=== PATIENT | female | born 1955 | race Hispanic/Latino ===

== ENCOUNTER 2023-03-27 16:46 | Emergency (ER) | payer OTHER ==
[2023-03-27 18:32] LABS: Hematocrit 35.1 % (36.0-45.0); Lymphocytes % 8.6 % (15.3-44.8); MCV 93.9 fL (80-100); RBC Red Blood Cell Count 3.74 M/uL (3.86-4.86)
[2023-03-27 18:34] LABS: Protime INR 0.98
[2023-03-27 18:49] LABS: ALT/SGPT 28 U/L (13-56); AST/SGOT 16 U/L (15-37); Albumin 3.9 g/dL (3.4-5.0); Alkaline Phosphatase 80 U/L (45-117); BUN Blood Urea Nitrogen 17 mg/dL (7-18); Bicarbonate 25 mEq/L (21-32); Bilirubin Total 0.2 mg/dL (0.2-1.0); Glomerular Filtration Rate 94 ml/min (=/>90); Glucose Level 147 mg/dL (74-106); Lipase 38 U/L (13-75); NT PRO-BNP 61 pg/mL (<125); Potassium 3.4 mEq/L (3.5-5.1); Protein, Total 7.7 g/dL (6.4-8.2); Sodium Level 135 mEq/L (136-145); Troponin High Sensitivity 3.4 pg/mL (<58.9)
[2023-03-27 18:52] LABS: Bilirubin Direct < 0.1 mg/dL (0-0.2)
[2023-03-27] MEDS ORDERED: ONDANSETRON 4 MG/2 ML VIAL ONE (19:01)
[2023-03-27] MEDS ORDERED: FAMOTIDINE 20 MG/2 ML VIAL IV ONE (19:01)
--- NOTE | 2023-03-27 19:24 | RAD REPORT ---
EXAM DESCRIPTION: [place] Single View03/27/2023 5:59 pm CLINICAL HISTORY: CHEST PAIN COMPARISON: Chest Single View dated 08/17/2017; CHEST SINGLE VIEW dated 10/27/2010; CHEST PA AND LAT 2 VIEW dated 06/26/2007 TECHNIQUE: Portable AP view of the chest. FINDINGS: The lungs are clear. No pneumothorax or effusion. The cardiomediastinal contours are unrem arkable. IMPRESSION: No acute cardiopulmonary process.
--- NOTE | 2023-03-27 20:00 | RAD REPORT ---
EXAM DESCRIPTION: CT - Chest For Pe Angio - 03/27/2023 7:26 pm CLINICAL HISTORY: CHEST PAIN COMPARISON: Chest Single View dated 03/27/2023 TECHNIQUE: Thin axial CT images of the chest were obtained following administration of 100 mL Isovue 370 IV contrast. Multiplanar reconstructions, and maximum intensity projection reconstructions were generated and reviewed. Exam utilizes a protocol for optimal evaluation of pulmonary arterial tree. All CT scans are performed using dose optimization technique as appropriate and may include automated exposure control or mA/KV adjustment according to patient size. FINDINGS: Pulmonary arteries are normal. No emboli or other suspicious finding. No acute or signific ant aorta findings. No mass or infiltrate in the lung parenchyma. No pleural thickening or pleural effusion. No pneumotho rax. No abnormal mediastinal or hilar masses or lymphadenopathy seen. No chest wall mass or abnormal axill iary lymphadenopathy. IMPRESSION: No evidence of acute central pulmonary emboli. No acute findings in the chest.
--- NOTE | 2023-03-27 20:04 | RAD REPORT ---
EXAM DESCRIPTION: CT - Abdomen Pelvis W Contrast - 03/27/2023 7:26 pm CLINICAL HISTORY: ABD PAIN COMPARISON: Abdomen Pelvis W Contrast dated 02/17/2022; Chest Single View dated 03/27/2023 TECHNIQUE: Thin cut axial CT imaging of the abdomen and pelvis was performed following intravenous a dministration of 100 Isovue 370. Multiplanar reformats were generated and reviewed. All CT scans are performed using dose optimization technique as appropriate and may include automated exposure control or mA/KV adjustment according to patient size. FINDINGS: No suspicious findings in the lung bases. The liver, spleen, and pancreas show no suspicious findings. Gallbladder and biliary tree are also wi thout suspicious finding. Symmetric renal function is seen with no hydronephrosis or suspicious renal mass. No dilated bowel loops. Mild diffuse bowel wall thickening along the ascending and transverse colon. No free air, free fluid or inflammatory stranding. No hernia, mass or bulky lymphadenopathy. The urin lucille bladder is without significant finding. No suspicious bony findings. IMPRESSION: Mild diffuse bowel wall thickening along the ascending and transverse colon, could refle ct nonspecific infectious or inflammatory colitis, although the appearance could in part be related t o suboptimal distention. No other acute findings in the abdomen and pelvis.
--- NOTE | 2023-03-27 20:51 | ER ---
Nurse's Notes [facility] Name: Ellen Nevarez Age: 67 yrs Sex: Female : 1955 Arrival Date: 03/27/2023 Time: 16:46 Bed 3 Private MD: Diagnosis: Colitis Presentation: 03/27 17:08 Chief complaint: Patient states: she is having diffuse abdominal pain with nausea after ap3 eating pork tacos. patient reports her symptoms started today. Coronavirus screen: At this time, the client does not indicate any symptoms associated with coronavirus-19. Ebola Screen: No symptoms or risks identified at this time. Initial Sepsis Screen: Does the patient meet any 2 criteria? No. Patient's initial sepsis screen is negative. Does the patient have a suspected source of infection? No. Patient's initial sepsis screen is negative. Risk Assessment: Do you want to hurt yourself or someone else? Patient reports no desire to harm self or others. Onset of symptoms was March 27, 2023. 17:08 Method Of Arrival: Wheelchair ap3 17:08 Acuity: RAOUL 3 ap3 Triage Assessment: 17:10 General: Appears in no apparent distress. Behavior is calm, cooperative. Pain: ap3 Complains of pain in abdomen Pain began today. Neuro: Level of Consciousness is awake, alert, obeys commands, Oriented to person, place, time, situation. Cardiovascular: Patient's skin is warm and dry. Respiratory: Airway is patent Respiratory effort is even, unlabored, Respiratory pattern is regular, symmetrical. GI: Reports lower abdominal pain, upper abdominal pain, nausea. Historical: - Allergies: 17:09 Aspirin; ap3 - PMHx: 17:09 Hypertension; ap3 - Immunization history:: Client reports having NOT received the Covid vaccine. - Social history:: Smoking status: Patient denies any tobacco usage or history of. Screenin:11 Abuse screen: Denies threats or abuse. Nutritional screening: No deficits noted. ap3 Tuberculosis screening: No symptoms or risk factors identified. 19:10 [facility] ED Fall Risk Assessment (Adult) History of falling in the last 3 months, nj1 including since admission No falls in past 3 months (0 pts) Confusion or Disorientation No (0 pts) Intoxicated or Sedated No (0 pts) Impaired Gait No (0 pts) Mobility Assist Device Used No (0 pt) Altered Elimination No (0 pt) Score/Fall Risk Level 0 - 2 = Low Risk Oriented to surroundings, Maintained a safe environment, Hourly rounding (assess needs \T\ fall precautionary measures) done. Assessment: 18:25 Reassessment: Patient appears in no apparent distress at this time. Patient and/or nj1 family updated on plan of care and expected duration. Pain level reassessed. Patient is alert, oriented x 3, equal unlabored respirations, skin warm/dry/pink. 18:25 Neuro: Level of Consciousness is awake, alert, obeys commands, Oriented to person, nj1 place, time, situation. Respiratory: Airway is patent Respiratory effort is even, unlabored. GI: Reports upper abdominal pain, bloating, Belching. 19:00 Pain: Complains of pain in abdomen Pain currently is 5 out of 10 on a pain scale. at nj1 worst was 10 out of 10 on a pain scale. 19:00 Reassessment: Pt states she is not nauseous, refusing zofran and morphine. nj1 20:00 Reassessment: Patient appears in no apparent distress at this time. Patient and/or nj1 family updated on plan of care and expected duration. Pain level reassessed. Patient is alert, oriented x 3, equal unlabored respirations, skin warm/dry/pink. Patient states feeling better. Patient states symptoms have improved. 21:00 Reassessment: Patient appears in no apparent distress at this time. Patient and/or nj1 family updated on plan of care and expected duration. Pain level reassessed. Patient is alert, oriented x 3, equal unlabored respirations, skin warm/dry/pink. Patient states feeling better. Patient states symptoms have improved. Vital Signs: 17:08 BP 104 / 79; Pulse 79; Resp 18; Temp 98.7; Pulse Ox 95% ; Weight 72.57 kg; ap3 18:30 BP 139 / 77; Pulse 81; Resp 18; Pulse Ox 98% on R/A; nj1 19:30 BP 141 / 82; Pulse 82; Resp 18; Pulse Ox 100% on R/A; nj1 ED Course: 16:49 Patient arrived in ED. mr 17:09 Fausto Adame PA is PHCP. yesika 17:09 Mckinley Colunga MD is Attending Physician. jmm 17:09 Triage completed. ap3 17:11 Arm band placed on left wrist. ap3 17:57 Radiology exam delayed due to lab results not completed at this time. (BUN/Creatinine) jg10 IV insertion attempt and/or patient not having appropriate IV at this time. 18:01 XRAY Chest (1 view) In Process Unspecified. EDMS 18:11 Shila Meehan, RN is Primary Nurse. nj1 18:25 Patient has correct armband on for positive identification. Bed in low position. Call nj1 light in reach. Side rails up X 1. Adult w/ patient. 18:25 Initial lab(s) drawn, by me, sent to lab. Inserted saline lock: 20 gauge in left wrist, em1 using aseptic technique. Blood collected. Missed attempt(s): 22 gauge in right antecubital area. Bleeding controlled, band aid applied, catheter tip intact. 18:49 PHCP role handed off by Fausto Adame PA kb 18:49 Katerina Jiang FNP-C is PHCP. kb 19:28 CT Chest For PE Angio In Process Unspecified. EDMS 19:28 CT Abd/Pelvis - IV Contrast Only In Process Unspecified. EDMS 21:00 No provider procedures requiring assistance completed. nj1 21:00 IV discontinued, intact, bleeding controlled. nj1 Administered Medications: 19:00 Drug: Famotidine IVP 20 mg Route: IVP; Site: left wrist; nj1 19:30 Follow up: Response: No adverse reaction nj1 21:03 Drug: Ciprofloxacin PO 500 mg Route: PO; nj1 21:30 Follow up: Response: No adverse reaction nj1 21:03 Drug: metroNIDAZOLE PO 500 mg Route: PO; nj1 21:30 Follow up: Response: No adverse reaction nj1 21:27 Not Given (Patient Refused): morphine IVP or IV 4 mg IVP once over 4 mins kd3 21:27 Not Given (Patient Refused): Ondansetron IVP 4 mg IVP once; over 2 minutes kd3 Medication: 21:00 VIS not applicable for this client. nj1 Outcome: 20:51 Discharge ordered by . kb 21:00 Discharged to home ambulatory. nj1 21:00 Condition: stable 21:00 Discharge instructions given to patient, Instructed on discharge instructions, follow up and referral plans. medication usage, Demonstrated understanding of instructions, follow-up care, medications. 21:27 Patient left the ED. kd3 Signatures: Dispatcher [employer] EDMS Katerina Jiang, APPAREL PATTERNMAKER-C APPAREL PATTERNMAKER-CkFausto North PA PA jmm Gaston, Arlyn Gimenez, Edmond em1 Nereida Portillo RN RN ap3 Roxi Grayson RN RN kd3 Venessa Michael jg10 Shila Meehan RN RN nj1 Corrections: (The following items were deleted from the chart) 20:24 20:00 Reassessment: Patient appears in no apparent distress at this time. Patient nj1 and/or family updated on plan of care and expected duration. Pain level reassessed. Patient is alert, oriented x 3, equal unlabored respirations, skin warm/dry/pink. Patient denies pain at this time. nj1 20:26 20:00 Reassessment: Patient appears in no apparent distress at this time. Patient nj1 and/or family updated on plan of care and expected duration. Pain level reassessed. Patient is alert, oriented x 3, equal unlabored respirations, skin warm/dry/pink. nj1 22:26 19:00 Pain: Complains of pain in abdomen Pain currently is 5 out of 10 on a pain scale. nj1 at worst was 10 out of 10 on a pain scale. nj1
--- NOTE | 2023-03-27 20:51 | EDPHYS ---
Physician Documentation [facility] Name: Ellen Nevarez Age: 67 yrs Sex: Female : 1955 Arrival Date: 03/27/2023 Time: 16:46 Bed 3 Private MD: ED Physician Mckinley Colunga HPI: 03/27 17:15 This 67 yrs old Female presents to ER via Wheelchair with complaints of jmm Nausea, Abdominal Pain. 17:15 The patient presents to the emergency department with abdominal pain. Onset: The jmm symptoms/episode began/occurred acutely, today. Is a 67-year-old female with history of hypertension the presents emerged from with complaints of cute onset abdominal pain after eating earlier today. Pain radiates from her lower abdomen up into her chest.. Historical: - Allergies: 17:09 Aspirin; ap3 - PMHx: 17:09 Hypertension; ap3 - Immunization history:: Client reports having NOT received the Covid vaccine. - Social history:: Smoking status: Patient denies any tobacco usage or history of. ROS: 17:15 Constitutional: Negative for fever, chills, and weight loss, Respiratory: Negative for jmm shortness of breath, cough, wheezing, and pleuritic chest pain. 17:15 Cardiovascular: Positive for chest pain. 17:15 Abdomen/GI: Positive for abdominal pain. 17:15 All other systems are negative. Exam: 17:15 Head/Face: atraumatic. jmm 17:15 Eyes: EOMI, no conjunctival erythema appreciated ENT: Moist Mucus Membranes Neck: Trachea midline, Supple Chest/axilla: Normal chest wall appearance and motion. Cardiovascular: Regular rate and rhythm. No edema appreciated Respiratory: Normal respirations, no respiratory distress appreciated Abdomen/GI: Non distended Back: Normal ROM Skin: General appearance color normal MS/ Extremity: Moves all extremities, no obvious deformities appreciated, no edema noted to the lower extremities Neuro: Awake and alert 17:15 Constitutional: The patient appears alert, awake, anxious. 17:15 Psych: Behavior/mood is pleasant, cooperative, anxious. Vital Signs: 17:08 BP 104 / 79; Pulse 79; Resp 18; Temp 98.7; Pulse Ox 95% ; Weight 72.57 kg; ap3 18:30 BP 139 / 77; Pulse 81; Resp 18; Pulse Ox 98% on R/A; nj1 19:30 BP 141 / 82; Pulse 82; Resp 18; Pulse Ox 100% on R/A; nj1 MDM: 17:15 Patient medically screened. [facility] 20:49 Differential diagnosis: pancreatitis, diverticulitis, viral gastroenteritis, colitis. kb Data reviewed: vital signs, nurses notes. Counseling: I had a detailed discussion with the patient and/or guardian regarding: the historical points, exam findings, and any diagnostic results supporting the discharge/admit diagnosis, lab results, radiology results, the need for outpatient follow up, a family practitioner, to return to the emergency department if symptoms worsen or persist or if there are any questions or concerns that arise at home. 03/27 17:16 Order name: Basic Metabolic Panel; Complete Time: 18:[address] [facility] 03/27 17:16 Order name: CBC with Diff; Complete Time: 18:[address] [facility] 03/27 17:16 Order name: D-Dimer; Complete Time: 18:[address] [facility] 03/27 17:16 Order name: LFT's; Complete Time: 18:[address] [facility] 03/27 17:16 Order name: Magnesium; Complete Time: 18:[address] [facility] 03/27 17:16 Order name: NT PRO-BNP; Complete Time: 18:[address] [facility] 03/27 17:16 Order name: PT-INR; Complete Time: 18:[address] [facility] 03/27 17:16 Order name: Troponin HS; Complete Time: 18:[address] [facility] 03/27 17:16 Order name: Lipase; Complete Time: 18:[address] [facility] 03/27 17:16 Order name: XRAY Chest (1 view); Complete Time: 19:[address] [facility] 03/27 18:39 Order name: CT Chest For PE Angio; Complete Time: 20:[address] [facility] 03/27 18:39 Order name: CT Abd/Pelvis - IV Contrast Only; Complete Time: 20:[address] [facility] 03/27 17:16 Order name: EKG; Complete Time: 17:[address] [facility] 03/27 17:16 Order name: Cardiac monitoring; Complete Time: 18:[address] [facility] 03/27 17:16 Order name: IV Saline Lock; Complete Time: 18:[address] [facility] 03/27 17:16 Order name: Labs collected and sent; Complete Time: 18:[address] [facility] 03/27 17:16 Order name: O2 Per Protocol; Complete Time: 18:[address] [facility] 03/27 17:16 Order name: O2 Sat Monitoring; Complete Time: 18:[address] [facility] Administered Medications: 19:00 Drug: Famotidine IVP 20 mg Route: IVP; Site: left wrist; nj1 19:30 Follow up: Response: No adverse reaction nj1 21:03 Drug: Ciprofloxacin PO 500 mg Route: PO; nj1 21:30 Follow up: Response: No adverse reaction nj1 21:03 Drug: metroNIDAZOLE PO 500 mg Route: PO; nj1 21:30 Follow up: Response: No adverse reaction nj1 21:27 Not Given (Patient Refused): morphine IVP or IV 4 mg IVP once over 4 mins kd3 21:27 Not Given (Patient Refused): Ondansetron IVP 4 mg IVP once; over 2 minutes kd3 Disposition Summary: 03/27/23 20:51 Discharge Ordered Location: Home kb Condition: Stable kb Diagnosis - Colitis kb Followup: kb - With: Emergency Department - When: As needed - Reason: Worsening of condition Followup: kb - With: Private Physician - When: 2 - 3 days - Reason: Recheck today's complaints, Continuance of care, Re-evaluation by your physician Discharge Instructions: - Discharge Summary Sheet kb - Colitis kb Forms: - Medication Reconciliation Form kb - Thank You Letter kb - Antibiotic Education kb - Prescription Opioid Use kb Prescriptions: - Flagyl 500 mg Oral Tablet - take 1 tablet by ORAL route every 8 hours for 10 days; 30 tablet; Refills: 0, kb Product Selection Permitted - Cipro 500 mg Oral Tablet - take 1 tablet by ORAL route every 12 hours for 10 days; 20 tablet; Refills: 0, kb Product Selection Permitted Signatures: Dispatcher [employer] EDMS Katerina Jiang, [employer] TURNING MACHINE FEEDER-Fausto Caraballo PA PA jmm Prokisch, Amanda RN RN ap3 Shila Meehan RN RN nj1 Roxi Grayson RN kd3 Corrections: (The following items were deleted from the chart) 17:18 17:16 EKG - Nurse/Tech ordered. yesika napoles 18:44 17:18 Angio Aorta For Dissection+CT.RAD.BRZ ordered. EDMS EDMS
[2023-03-27] MEDS ORDERED: CIPROFLOXACIN HCL 500 MG TAB ONE (21:03)
[2023-03-27] MEDS ORDERED: metroNIDAZOLE 500 MG TABLET ONE (21:04)
[2023-03-27 22:11] VITALS: TEMP 98.7
[2023-03-27 22:14] VITALS: BP 141/82; O2SAT 100
== END 2023-03-27 21:27 | disposition home or self-care (01) ==
LOC: ER 16:46
DX: K52.9 Noninfective gastroenteritis and colitis, unspecified (principal); Z88.6 Allergy status to analgesic agent
CPT/HCPCS: 85025; 80048; 36415; 83735; 85610; 85379; 80076; 84484; 83690; 83880; 71275; 74177; 71045; 96374; 99284; Q9967; J2405

== ENCOUNTER 2024-02-21 09:13 | Observation (INO) | payer OTHER ==
[2024-02-21] MEDS ORDERED: NA CHLORIDE 0.9% 1,000 ML ONE (09:42)
[2024-02-21] MEDS ORDERED: FAMOTIDINE 20 MG/2 ML VIAL IV ONE (09:42)
[2024-02-21 09:51] LABS: Absolute Eosinophils 0.1 K/uL (0-0.5); Absolute Lymphocytes (CBC) 1.7 K/uL (0.7-4.9); Absolute Monocytes 0.4 K/uL (0.1-1.3); Basophils % 0.6 % (0-1.3); Eosinophils % 2.4 % (0-4.4); Hematocrit 36.6 % (36.0-45.0); Hemoglobin 12.4 g/dL (12.0-15.0); Lymphocytes % 40.2 % (15.3-44.8); MCH 32.3 pg (27.0-35.0); MCHC 33.9 g/dL (32.0-36.0); MCV 95.3 fL (80-100); MPV 9.3 fL (7.6-11.3); Monocytes % 8.6 % (3.3-12.3); Neutrophils % 48.2 % (41.7-73.7); Nucleated Red Blood Cells % 0.1 % (0-0); Platelets 176 thou/uL (152-406); RBC Red Blood Cell Count 3.84 M/uL (3.86-4.86); Red Cell Distribution Width 13.6 % (12.1-15.2)
[2024-02-21 10:10] LABS: ALT/SGPT 27 U/L (13-56); AST/SGOT 12 U/L (15-37); Albumin/Globulin Ratio 1.1 (1.1-1.8); Alkaline Phosphatase 81 U/L (45-117); Anion Gap 6.5 mEq/L (5.0-15.0); BUN Blood Urea Nitrogen 17 mg/dL (7-18); Bicarbonate 29 mEq/L (21-32); Bilirubin Total 0.3 mg/dL (0.2-1.0); Globulin 3.8 g/dL (2.3-3.5); Glomerular Filtration Rate 96 ml/min (=/>90); Glucose Level 113 mg/dL (74-106); Magnesium 2.2 mg/dL (1.6-2.4); NT PRO-BNP 48 pg/mL (<125); Potassium 3.5 mEq/L (3.5-5.1); Protein, Total 7.8 g/dL (6.4-8.2); Sodium Level 137 mEq/L (136-145)
[2024-02-21 10:12] LABS: Bilirubin Direct < 0.1 mg/dL (0-0.2); Bilirubin Indirect, Calculated ND mg/dL (0.2-0.8); C-Reactive Protein < 2.90 mg/L (<3.00); Troponin High Sensitivity < 3.0 pg/mL (<58.9)
[2024-02-21 10:16] LABS: PT Prothrombin Time 11.3 SECONDS (9.5-12.5); Protime INR 1.03
--- NOTE | 2024-02-21 10:24 | ER ---
Nurse's Notes [facility] Name: Ellen Nevarez Age: 68 yrs Sex: Female : 1955 Arrival Date: 02/21/2024 Time: 09:13 Bed 8 Private MD: Diagnosis: Dizziness and giddiness;Transient cerebral ischemic attack, unspecified Presentation: 02/20 09:25 Chief complaint: Patient states: "I was at work earlier I felt dizzy and started rs5 feeling my heart race". 09:25 Coronavirus screen: At this time, the client does not indicate any symptoms associated rs5 with coronavirus-19. Ebola Screen: No symptoms or risks identified at this time. Initial Sepsis Screen: Does the patient meet any 2 criteria? No. Patient's initial sepsis screen is negative. Does the patient have a suspected source of infection? No. Patient's initial sepsis screen is negative. Risk Assessment: Do you want to hurt yourself or someone else? Patient reports no desire to harm self or others. Onset of symptoms was February 21, 2024. 09:25 Method Of Arrival: EMS: [facility] rs5 09:25 Acuity: RAOUL 3 rs5 Historical: - Allergies: 09: Aspirin; rs5 - PMHx: :25 Hypertension; rs5 - PSHx: :25 None; rs5 - Immunization history:: Adult Immunizations up to date. - Infectious Disease History:: Denies. - Social history:: Smoking status: Patient denies any tobacco usage or history of. - Family history:: not pertinent. Screenin:25 [facility] ED Fall Risk Assessment (Adult) History of falling in the last 3 months, rs5 including since admission No falls in past 3 months (0 pts) Confusion or Disorientation No (0 pts) Intoxicated or Sedated No (0 pts) Impaired Gait No (0 pts) Mobility Assist Device Used No (0 pt) Altered Elimination No (0 pt) Score/Fall Risk Level 0 - 2 = Low Risk Oriented to surroundings, Maintained a safe environment. 09:25 Abuse screen: Denies threats or abuse. Nutritional screening: No deficits noted. rs5 Tuberculosis screening: No symptoms or risk factors identified. 10:17 VAN Screening: Arm Drift: Patient shows no arm weakness. Visual Disturbance: No visual es3 disturbance noted. Aphasia: No aphasia noted. Neglect: No neglect noted. 10:18 Panacea Swallow Protocol Exclusion Criteria: Exclusion Criteria Result: Proceed Brief es3 Cognitive Screen What is your name? Normal, Where are you right now? Normal, What year is it? Normal. Oral Mechanism Examination Facial Symmetry: Normal, Motion: Normal, Lip Closure: Normal, Oral Mechanism Result: Normal. 3 oz Water Swallow Challenge: Pt able to drink all water without stopping, coughing, choking or throat clearing: Yes Result: PASS MD Notified: Mckinley Colunga MD. Assessment: 09:25 General: Appears in no apparent distress. comfortable, Behavior is calm, cooperative. rs5 Pain: Complains of pain in head Pain currently is 5 out of 10 on a pain scale. Quality of pain is described as aching, Is continuous. Neuro: Level of Consciousness is awake, alert, obeys commands, Oriented to person, place, time, situation. Neuro: Ground Mixer are equal bilaterally Moves all extremities. Gait is steady, Speech is normal, Facial symmetry appears normal, Pupils are PERRLA, Pupil Size: 3 mm Intact. Cardiovascular: Patient's skin is warm and dry. Rhythm is regular. Respiratory: Airway is patent Respiratory effort is even, unlabored, Respiratory pattern is regular, symmetrical. GI: Abdomen is round non-distended, Abd is soft and non tender. : EENT: No signs and/or symptoms were reported regarding the EENT system. Derm: Skin is intact, Skin is pink, warm \\T\\ dry. Musculoskeletal: Range of motion: intact in all extremities. 10:10 Reassessment: No changes from previously documented assessment. rs5 10:15 Reassessment: Pt states "I don't want TNK, I know what it is and what it's for and I rs5 don't want it" provider notified. 10:38 Reassessment: Patient and/or family updated on plan of care and expected duration. Pain rs5 level reassessed. Patient is alert, oriented x 3, equal unlabored respirations, skin warm/dry/pink. Provider at bedside. 11:33 Reassessment: Pt states "I feel fine now, I want to leave" Provider notified. rs5 11:37 Reassessment: Provider at bedside . rs5 11:40 Reassessment: Pt states "I want to leave because I feel fine, I don't want to stay" . rs5 11:45 Reassessment: Instructed to have pt sign AMA form by provider. To bedside with AMA rs5 form. Pt educated about risks and possible consequences of leaving against medical advice. Pt verbalizes understanding of education. Pt signed ama form. 11:45 Reassessment: Patient and/or family updated on plan of care and expected duration. Pain rs5 level reassessed. Patient is alert, oriented x 3, equal unlabored respirations, skin warm/dry/pink. Vital Signs: 09:25 BP 157 / 86; Pulse 81; Resp 18; Temp 98(O); Pulse Ox 99% ; rs5 10:05 BP 155 / 82; Pulse 77; Resp 18; Pulse Ox 99% on R/A; rs5 10:20 BP 145 / 84; Pulse 76; Resp 17; Pulse Ox 99% on R/A; rs5 10:26 Weight 72.57 kg; ld1 10:50 BP 147 / 80; Pulse 73; Resp 18; Pulse Ox 99% on R/A; rs5 11:05 BP 152 / 81; Pulse 72; Resp 18; Pulse Ox 99% on R/A; rs5 Pradeep Coma Score: 10:18 Eye Response: spontaneous(4). Motor Response: obeys commands(6). Verbal Response: karina oriented(5). Total: 15. NIH Stroke Scale Scores: 09:30 NIHSS Score: 0 rs5 10:15 NIHSS Score: 0 karina 10:16 NIHSS Score: 0 es3 10:39 NIHSS Score: 0 rs5 11:35 NIHSS Score: 0 rs5 ED Course: 09:23 Patient arrived in ED. karina 09:23 Mckinley Colunga MD is Attending Physician. karina 09:25 No provider procedures requiring assistance completed. rs5 09:25 Patient has correct armband on for positive identification. Placed in gown. Bed in low rs5 position. Call light in reach. Side rails up X2. 09:44 XRAY Chest (1 view) In Process Unspecified. EDMS 09:47 Lio Jimenez, RN is Primary Nurse. rs5 09:49 Triage completed. rs5 10:18 CT Stroke Brain w/o Contrast In Process Unspecified. EDMS 10:18 CT Head Angio In Process Unspecified. EDMS 10:18 CT Neck Angio In Process Unspecified. EDMS 10:30 Urinalysis w/ reflexes Sent. bc6 10:52 Eamon Layton is Hospitalizing Provider. karina 11:47 IV discontinued, intact, bleeding controlled, No redness/swelling at site. Pressure rs5 dressing applied. Administered Medications: 09:30 Drug: NS 0.9% IV 1000 ml IV at 1 bolus Per protocol; 1000 mL bolus Route: IV; Rate: 1 rs5 bolus; Site: left antecubital; 10:00 Follow up: Response: No adverse reaction rs5 11:09 Follow up: IV Status: Completed infusion rs5 09:30 Drug: Famotidine IVP 20 mg IVP once; dilute with 10 mL 0.9% NaCl; give over 2 minutes rs5 Route: IVP; Site: left antecubital; 09:45 Follow up: Response: No adverse reaction rs5 10:45 Not Given (Patient Refused): TNK FOR STROKE - tenecteplase0.25 mg/kg IV at per rs5 protocol once; MAX DOSE 25 mg, IVP over 5 seconds 10:56 Drug: foLIC Acid IVPB 1 mg IVPB once Route: IVPB; Site: left antecubital; rs5 11:09 Follow up: Response: No adverse reaction rs5 11:08 Drug: Clopidogrel PO 75 mg PO once Route: PO; rs5 11:30 Follow up: Response: No adverse reaction rs5 11:08 Drug: Atorvastatin PO 20 mg PO once Route: PO; rs5 11:30 Follow up: Response: No adverse reaction rs5 Medication: 10:36 VIS not applicable for this client. rs5 Outcome: 10:23 ER care complete, transfer ordered by . karina 10:53 Decision to Hospitalize by Provider. karina 11:00 Admitted to ER Hold. Please see [facility] for further documentation. kb3 11:47 Condition: stable rs5 11:47 Discharge instructions given to patient, Instructed on the need for admit, and risks and potential consequences involved with leaving against medical advice. pt verbalizes understanding and discharge instructions Demonstrated understanding of instructions, 11:50 Patient left the ED. rs5 NIH Stroke Scale - NIH Stroke Score Date: 02/21/2024 Time: 09:30 Total Score = 0 10. Dysarthria (speech clarity - read or repeat words) - 0(Normal) 11. Extinction and Inattention (visual/tactile/auditory/spatial/personal) - 0(No abnormality) 1a. Level of Consciousness (LOC) - 0(Alert) 1b. Level of Consciousness (LOC) (Month \\T\\ Age) - 0(Both) 1c. LOC Commands (Open \\T\\ Closes Eyes/Highway Engineering Teacher) - 0(Both) 2. Best Gaze (Lateral Gaze Paresis) - 0(Normal) 3. Visual Field Loss - 0(No visual loss) 4. Facial Palsy - 0(Normal) 5a. Left Arm: Motor (10-second hold) - 0(No drift) 5b. Right Arm: Motor (10-second hold) - 0(No drift) 6a. Left Leg: Motor (5-second hold - always test supine) - 0(No drift) 6b. Right Leg: Motor (5-second hold - always test supine) - 0(No drift) 7. Limb Ataxia (finger/nose \\T\\ heel/olsen - test with eyes open) - 0(Absent) 8. Sensory Loss (pinprick arms/legs/face) - 0(Normal) 9. Best Language: Aphasia (description/naming/reading) - 0(No aphasia) Initials: rs5 NIH Stroke Scale - NIH Stroke Score Date: 02/21/2024 Time: 10:15 Total Score = 0 10. Dysarthria (speech clarity - read or repeat words) - 0(Normal) 11. Extinction and Inattention (visual/tactile/auditory/spatial/personal) - 0(No abnormality) 1a. Level of Consciousness (LOC) - 0(Alert) 1b. Level of Consciousness (LOC) (Month \\T\\ Age) - 0(Both) 1c. LOC Commands (Open \\T\\ Closes Eyes/Highway Engineering Teacher) - 0(Both) 2. Best Gaze (Lateral Gaze Paresis) - 0(Normal) 3. Visual Field Loss - 0(No visual loss) 4. Facial Palsy - 0(Normal) 5a. Left Arm: Motor (10-second hold) - 0(No drift) 5b. Right Arm: Motor (10-second hold) - 0(No drift) 6a. Left Leg: Motor (5-second hold - always test supine) - 0(No drift) 6b. Right Leg: Motor (5-second hold - always test supine) - 0(No drift) 7. Limb Ataxia (finger/nose \\T\\ heel/olsen - test with eyes open) - 0(Absent) 8. Sensory Loss (pinprick arms/legs/face) - 0(Normal) 9. Best Language: Aphasia (description/naming/reading) - 0(No aphasia) Initials: karina NIH Stroke Scale - NIH Stroke Score Date: 02/21/2024 Time: 10:16 Total Score = 0 10. Dysarthria (speech clarity - read or repeat words) - 0(Normal) 11. Extinction and Inattention (visual/tactile/auditory/spatial/personal) - 0(No abnormality) 1a. Level of Consciousness (LOC) - 0(Alert) 1b. Level of Consciousness (LOC) (Month \\T\\ Age) - 0(Both) 1c. LOC Commands (Open \\T\\ Closes Eyes/Highway Engineering Teacher) - 0(Both) 2. Best Gaze (Lateral Gaze Paresis) - 0(Normal) 3. Visual Field Loss - 0(No visual loss) 4. Facial Palsy - 0(Normal) 5a. Left Arm: Motor (10-second hold) - 0(No drift) 5b. Right Arm: Motor (10-second hold) - 0(No drift) 6a. Left Leg: Motor (5-second hold - always test supine) - 0(No drift) 6b. Right Leg: Motor (5-second hold - always test supine) - 0(No drift) 7. Limb Ataxia (finger/nose \\T\\ heel/olsen - test with eyes open) - 0(Absent) 8. Sensory Loss (pinprick arms/legs/face) - 0(Normal) 9. Best Language: Aphasia (description/naming/reading) - 0(No aphasia) Initials: es3 NIH Stroke Scale - NIH Stroke Score Date: 02/21/2024 Time: 10:39 Total Score = 0 10. Dysarthria (speech clarity - read or repeat words) - 0(Normal) 11. Extinction and Inattention (visual/tactile/auditory/spatial/personal) - 0(No abnormality) 1a. Level of Consciousness (LOC) - 0(Alert) 1b. Level of Consciousness (LOC) (Month \\T\\ Age) - 0(Both) 1c. LOC Commands (Open \\T\\ Closes Eyes/Highway Engineering Teacher) - 0(Both) 2. Best Gaze (Lateral Gaze Paresis) - 0(Normal) 3. Visual Field Loss - 0(No visual loss) 4. Facial Palsy - 0(Normal) 5a. Left Arm: Motor (10-second hold) - 0(No drift) 5b. Right Arm: Motor (10-second hold) - 0(No drift) 6a. Left Leg: Motor (5-second hold - always test supine) - 0(No drift) 6b. Right Leg: Motor (5-second hold - always test supine) - 0(No drift) 7. Limb Ataxia (finger/nose \\T\\ heel/olsen - test with eyes open) - 0(Absent) 8. Sensory Loss (pinprick arms/legs/face) - 0(Normal) 9. Best Language: Aphasia (description/naming/reading) - 0(No aphasia) Initials: rs5 NIH Stroke Scale - NIH Stroke Score Date: 02/21/2024 Time: 11:35 Total Score = 0 10. Dysarthria (speech clarity - read or repeat words) - 0(Normal) 11. Extinction and Inattention (visual/tactile/auditory/spatial/personal) - 0(No abnormality) 1a. Level of Consciousness (LOC) - 0(Alert) 1b. Level of Consciousness (LOC) (Month \\T\\ Age) - 0(Both) 1c. LOC Commands (Open \\T\\ Closes Eyes/Highway Engineering Teacher) - 0(Both) 2. Best Gaze (Lateral Gaze Paresis) - 0(Normal) 3. Visual Field Loss - 0(No visual loss) 4. Facial Palsy - 0(Normal) 5a. Left Arm: Motor (10-second hold) - 0(No drift) 5b. Right Arm: Motor (10-second hold) - 0(No drift) 6a. Left Leg: Motor (5-second hold - always test supine) - 0(No drift) 6b. Right Leg: Motor (5-second hold - always test supine) - 0(No drift) 7. Limb Ataxia (finger/nose \\T\\ heel/olsen - test with eyes open) - 0(Absent) 8. Sensory Loss (pinprick arms/legs/face) - 0(Normal) 9. Best Language: Aphasia (description/naming/reading) - 0(No aphasia) Initials: rs5 Signatures: Dispatcher [employer] EDMckinley Ibrahim MD MD cha Sims, Lauren, RN RN ld1 Yamini Frost RN RN kb3 Lio Jimenez, RN RN rs5 Lucero Padron bc6 Juanita Galindo, RN RN es3 Corrections: (The following items were deleted from the chart) 13:41 10:05 BP 152 / 81; Pulse 72bpm; Resp 18bpm; Pulse Ox 99% RA; rs5 rs5 17:01 11:47 AMA AMA form signed rs5 kb3
--- NOTE | 2024-02-21 10:24 | EDPHYS ---
Physician Documentation [facility] [place] Name: Ellen Nevarez Age: 68 yrs Sex: Female : 1955 Arrival Date: 02/21/2024 Time: 09:13 Bed 8 Private MD: ED Physician Mckinley Colunga HPI: 02/20 10:14 This 68 yrs old Female presents to ER via EMS with complaints of Dizziness. karina 10:14 The patient presents with dizziness, lightheadedness, sense of spinning. karina 10:15 The patient complains of pain to the forehead. The patient describes the headache as karina constant. Onset: The symptoms/episode began/occurred at 08:00. Onset: The symptoms/episode began/occurred at 08:00. Modifying factors: The symptoms are alleviated by nothing, the symptoms are aggravated by nothing. Associated signs and symptoms: Pertinent positives: headache, nausea. Associated signs and symptoms: Pertinent positives: weakness. Severity of symptoms: At its worst the pain was mild, moderate, in the emergency department the pain has improved, mildly. Severity of symptoms: At their worst the symptoms were moderate in the emergency department the symptoms are unchanged. Patient's baseline: Neuro: alert and fully oriented. The patient has not experienced similar symptoms in the past. Historical: - Allergies: 09:25 Aspirin; rs5 - PMHx: 09:25 Hypertension; rs5 - PSHx: 09:25 None; rs5 - Immunization history:: Adult Immunizations up to date. - Infectious Disease History:: Denies. - Social history:: Smoking status: Patient denies any tobacco usage or history of. - Family history:: not pertinent. ROS: 10:15 Constitutional: Negative for fever, chills, and weight loss, Eyes: Negative for injury, karian pain, redness, and discharge, ENT: Negative for injury, pain, and discharge, Neck: Negative for injury, pain, and swelling, Cardiovascular: Negative for chest pain, palpitations, and edema, Respiratory: Negative for shortness of breath, cough, wheezing, and pleuritic chest pain, Abdomen/GI: Negative for abdominal pain, nausea, vomiting, diarrhea, and constipation, Back: Negative for injury and pain, : Negative for injury, bleeding, discharge, and swelling, MS/Extremity: Negative for injury and deformity, Skin: Negative for injury, rash, and discoloration, Psych: Negative for depression, anxiety, suicide ideation, homicidal ideation, and hallucinations, Allergy/Immunology: Negative for hives, rash, and allergies, Endocrine: Negative for neck swelling, polydipsia, polyuria, polyphagia, and marked weight changes, Hematologic/Lymphatic: Negative for swollen nodes, abnormal bleeding, and unusual bruising, 10:15 Neuro: Positive for dizziness, headache, numbness, near syncope, weakness, Exam: 10:15 Constitutional: This is a well developed, well nourished patient who is awake, alert, karina and in no acute distress. Head/Face: Normocephalic, atraumatic. Eyes: Pupils equal round and reactive to light, extra-ocular motions intact. Lids and lashes normal. Conjunctiva and sclera are non-icteric and not injected. Cornea within normal limits. Periorbital areas with no swelling, redness, or edema. ENT: Nares patent. No nasal discharge, no septal abnormalities noted. Tympanic membranes are normal and external auditory canals are clear. Oropharynx with no redness, swelling, or masses, exudates, or evidence of obstruction, uvula midline. Mucous membranes moist. Neck: Trachea midline, no thyromegaly or masses palpated, and no cervical lymphadenopathy. Supple, full range of motion without nuchal rigidity, or vertebral point tenderness. No Meningismus. Chest/axilla: Normal chest wall appearance and motion. Nontender with no deformity. No lesions are appreciated. Cardiovascular: Regular rate and rhythm with a normal S1 and S2. No gallops, murmurs, or rubs. Normal PMI, no JVD. No pulse deficits. Respiratory: Lungs have equal breath sounds bilaterally, clear to auscultation and percussion. No rales, rhonchi or wheezes noted. No increased work of breathing, no retractions or nasal flaring. Abdomen/GI: Soft, non-tender, with normal bowel sounds. No distension or tympany. No guarding or rebound. No evidence of tenderness throughout. Back: No spinal tenderness. No costovertebral tenderness. Full range of motion. Female : Normal external genitalia. Skin: Warm, dry with normal turgor. Normal color with no rashes, no lesions, and no evidence of cellulitis. MS/ Extremity: Pulses equal, no cyanosis. Neurovascular intact. Full, normal range of motion. Neuro: Awake and alert, GCS 15, oriented to person, place, time, and situation. Cranial nerves II-XII grossly intact. Motor strength 5/5 in all extremities. Sensory grossly intact. Cerebellar exam normal. Normal gait. Psych: Awake, alert, with orientation to person, place and time. Behavior, mood, and affect are within normal limits. 10:25 ECG was reviewed by the Attending Physician. [facility] Vital Signs: 09:25 BP 157 / 86; Pulse 81; Resp 18; Temp 98(O); Pulse Ox 99% ; rs5 10:05 BP 155 / 82; Pulse 77; Resp 18; Pulse Ox 99% on R/A; rs5 10:20 BP 145 / 84; Pulse 76; Resp 17; Pulse Ox 99% on R/A; rs5 10:26 Weight 72.57 kg; ld1 10:50 BP 147 / 80; Pulse 73; Resp 18; Pulse Ox 99% on R/A; rs5 11:05 BP 152 / 81; Pulse 72; Resp 18; Pulse Ox 99% on R/A; rs5 NIH Stroke Scale Scores: 09:30 NIHSS Score: 0 rs5 10:15 NIHSS Score: 0 karina 10:16 NIHSS Score: 0 es3 10:39 NIHSS Score: 0 rs5 11:35 NIHSS Score: 0 rs5 [place] Coma Score: 10:18 Eye Response: spontaneous(4). Motor Response: obeys commands(6). Verbal Response: karina oriented(5). Total: 15. MDM: 09:23 Patient medically screened. [facility] 10:18 Data reviewed: vital signs, nurses notes, lab test result(s), EKG, radiologic studies, karina CT scan, MRI, plain films. 10:18 Differential diagnosis: cerebral vascular accident, hypoglycemia, hyponatremia, karina migraine, sinusitis, temporal arteritis, tension headache, vasomotor headache. Differential diagnosis: cardiac arrhythmia, CVA, generalized weakness, hypovolemia, idiopathic dizziness, near-syncope, sepsis, syncope, TIA, vertigo. Consideration of Admission/Observation Escalation of care including admission/observation considered. I considered the following discharge prescriptions or medication management in the emergency department Medications were administered in the Emergency Department. See MAR. Independent interpretation of the following test(s) in the Emergency Department EKG: See my EKG interpretation above. Test considered but Not performed: Ultrasound no carotid usg. 02/20 09:28 Order name: Basic Metabolic Panel; Complete Time: 10:13 [facility] 02/20 09:28 Order name: CBC with Diff; Complete Time: 10:13 [facility] 02/20 09:28 Order name: LFT's; Complete Time: 10:13 [facility] 02/20 09:28 Order name: Magnesium; Complete Time: 10:13 [facility] 02/20 09:28 Order name: NT PRO-BNP; Complete Time: 10:13 [facility] 02/20 09:28 Order name: PT-INR; Complete Time: 10:46 [facility] 02/20 09:28 Order name: Troponin HS; Complete Time: 10:13 [facility] 02/20 09:28 Order name: CRP; Complete Time: 10:13 [facility] 02/20 09:28 Order name: Urinalysis w/ reflexes; Complete Time: 10:46 [facility] 02/20 10:25 Order name: Glucose, Ancillary Testing; Complete Time: 10:46 [facility] 02/20 10:46 Order name: Lipid Profile [facility] 02/20 09:28 Order name: XRAY Chest (1 view); Complete Time: 10:46 [facility] 02/20 09:28 Order name: CT Stroke Brain w/o Contrast; Complete Time: 10:46 [facility] 02/20 09:28 Order name: CT Head Angio; Complete Time: 10:46 [facility] 02/20 09:28 Order name: CT Neck Angio; Complete Time: 10:46 [facility] 02/20 10:06 Order name: Brain Wo Cont [facility] 02/20 09:28 Order name: EKG; Complete Time: 09:28 [facility] 02/20 11:45 Order name: CONS Physician Consult [facility] 02/20 09:28 Order name: Cardiac monitoring; Complete Time: 10:09 [facility] 02/20 09:28 Order name: EKG - Nurse/Tech; Complete Time: 10:30 [facility] 02/20 09:28 Order name: IV Saline Lock; Complete Time: 10:10 [facility] 02/20 09:28 Order name: Labs collected and sent; Complete Time: 10:10 [facility] 02/20 09:28 Order name: O2 Per Protocol; Complete Time: 10:10 [facility] 02/20 09:28 Order name: O2 Sat Monitoring; Complete Time: 10:10 [facility] EC:25 Rate is 78 beats/min. Rhythm is regular. QRS [place] is Normal. ID interval is normal. QRS karina interval is normal. QT interval is normal. No Q waves. T waves are Normal. No ST changes noted. Clinical impression: Normal ECG and No evidence of ischemia. Interpreted by me. Reviewed by me. Administered Medications: 09:30 Drug: NS 0.9% IV 1000 ml IV at 1 bolus Per protocol; 1000 mL bolus Route: IV; Rate: 1 rs5 bolus; Site: left antecubital; 10:00 Follow up: Response: No adverse reaction rs5 11:09 Follow up: IV Status: Completed infusion rs5 09:30 Drug: Famotidine IVP 20 mg IVP once; dilute with 10 mL 0.9% NaCl; give over 2 minutes rs5 Route: IVP; Site: left antecubital; 09:45 Follow up: Response: No adverse reaction rs5 10:45 Not Given (Patient Refused): TNK FOR STROKE - tenecteplase0.25 mg/kg IV at per rs5 protocol once; MAX DOSE 25 mg, IVP over 5 seconds 10:56 Drug: foLIC Acid IVPB 1 mg IVPB once Route: IVPB; Site: left antecubital; rs5 11:09 Follow up: Response: No adverse reaction rs5 11:08 Drug: Clopidogrel PO 75 mg PO once Route: PO; rs5 11:30 Follow up: Response: No adverse reaction rs5 11:08 Drug: Atorvastatin PO 20 mg PO once Route: PO; rs5 11:30 Follow up: Response: No adverse reaction rs5 Disposition Summary: 02/21/24 10:53 Hospitalization Ordered Notes: Hospitalization Status: Observation karina Provider: Eamon Layton cha Location: Telemetry/MedSurg (observation) karina Condition: Stable(02/21/24 10:53) karina Problem: new(02/21/24 10:53) karina Symptoms: have improved(02/21/24 10:53) karina Bed/Room Type: Standard karina Room Assignment: karina Diagnosis - Dizziness and giddiness(02/21/24 10:53) karina - Transient cerebral ischemic attack, unspecified karina Discharge Instructions: - Discharge Summary Sheet rs5 Forms: - Medication Reconciliation Form karina - SBAR form karina - Leadership Thank You Letter karina - Work release form rs5 NIH Stroke Scale - NIH Stroke Score Date: 02/21/2024 Time: 09:30 Total Score = 0 10. Dysarthria (speech clarity - read or repeat words) - 0(Normal) 11. Extinction and Inattention (visual/tactile/auditory/spatial/personal) - 0(No abnormality) 1a. Level of Consciousness (LOC) - 0(Alert) 1b. Level of Consciousness (LOC) (Month \T\ Age) - 0(Both) 1c. LOC Commands (Open \T\ Closes Eyes/Manager Terminal) - 0(Both) 2. Best Gaze (Lateral Gaze Paresis) - 0(Normal) 3. Visual Field Loss - 0(No visual loss) 4. Facial Palsy - 0(Normal) 5a. Left Arm: Motor (10-second hold) - 0(No drift) 5b. Right Arm: Motor (10-second hold) - 0(No drift) 6a. Left Leg: Motor (5-second hold - always test supine) - 0(No drift) 6b. Right Leg: Motor (5-second hold - always test supine) - 0(No drift) 7. Limb Ataxia (finger/nose \T\ heel/[place] - test with eyes open) - 0(Absent) 8. Sensory Loss (pinprick arms/legs/face) - 0(Normal) 9. Best Language: Aphasia (description/naming/reading) - 0(No aphasia) Initials: rs5 NIH Stroke Scale - NIH Stroke Score Date: 02/21/2024 Time: 10:15 Total Score = 0 10. Dysarthria (speech clarity - read or repeat words) - 0(Normal) 11. Extinction and Inattention (visual/tactile/auditory/spatial/personal) - 0(No abnormality) 1a. Level of Consciousness (LOC) - 0(Alert) 1b. Level of Consciousness (LOC) (Month \T\ Age) - 0(Both) 1c. LOC Commands (Open \T\ Closes Eyes/Manager Terminal) - 0(Both) 2. Best Gaze (Lateral Gaze Paresis) - 0(Normal) 3. Visual Field Loss - 0(No visual loss) 4. Facial Palsy - 0(Normal) 5a. Left Arm: Motor (10-second hold) - 0(No drift) 5b. Right Arm: Motor (10-second hold) - 0(No drift) 6a. Left Leg: Motor (5-second hold - always test supine) - 0(No drift) 6b. Right Leg: Motor (5-second hold - always test supine) - 0(No drift) 7. Limb Ataxia (finger/nose \T\ heel/[place] - test with eyes open) - 0(Absent) 8. Sensory Loss (pinprick arms/legs/face) - 0(Normal) 9. Best Language: Aphasia (description/naming/reading) - 0(No aphasia) Initials: karina NIH Stroke Scale - NIH Stroke Score Date: 02/21/2024 Time: 10:16 Total Score = 0 10. Dysarthria (speech clarity - read or repeat words) - 0(Normal) 11. Extinction and Inattention (visual/tactile/auditory/spatial/personal) - 0(No abnormality) 1a. Level of Consciousness (LOC) - 0(Alert) 1b. Level of Consciousness (LOC) (Month \T\ Age) - 0(Both) 1c. LOC Commands (Open \T\ Closes Eyes/Manager Terminal) - 0(Both) 2. Best Gaze (Lateral Gaze Paresis) - 0(Normal) 3. Visual Field Loss - 0(No visual loss) 4. Facial Palsy - 0(Normal) 5a. Left Arm: Motor (10-second hold) - 0(No drift) 5b. Right Arm: Motor (10-second hold) - 0(No drift) 6a. Left Leg: Motor (5-second hold - always test supine) - 0(No drift) 6b. Right Leg: Motor (5-second hold - always test supine) - 0(No drift) 7. Limb Ataxia (finger/nose \T\ heel/[place] - test with eyes open) - 0(Absent) 8. Sensory Loss (pinprick arms/legs/face) - 0(Normal) 9. Best Language: Aphasia (description/naming/reading) - 0(No aphasia) Initials: es3 NIH Stroke Scale - NIH Stroke Score Date: 02/21/2024 Time: 10:39 Total Score = 0 10. Dysarthria (speech clarity - read or repeat words) - 0(Normal) 11. Extinction and Inattention (visual/tactile/auditory/spatial/personal) - 0(No abnormality) 1a. Level of Consciousness (LOC) - 0(Alert) 1b. Level of Consciousness (LOC) (Month \T\ Age) - 0(Both) 1c. LOC Commands (Open \T\ Closes Eyes/Manager Terminal) - 0(Both) 2. Best Gaze (Lateral Gaze Paresis) - 0(Normal) 3. Visual Field Loss - 0(No visual loss) 4. Facial Palsy - 0(Normal) 5a. Left Arm: Motor (10-second hold) - 0(No drift) 5b. Right Arm: Motor (10-second hold) - 0(No drift) 6a. Left Leg: Motor (5-second hold - always test supine) - 0(No drift) 6b. Right Leg: Motor (5-second hold - always test supine) - 0(No drift) 7. Limb Ataxia (finger/nose \T\ heel/[place] - test with eyes open) - 0(Absent) 8. Sensory Loss (pinprick arms/legs/face) - 0(Normal) 9. Best Language: Aphasia (description/naming/reading) - 0(No aphasia) Initials: rs5 NIH Stroke Scale - NIH Stroke Score Date: 02/21/2024 Time: 11:35 Total Score = 0 10. Dysarthria (speech clarity - read or repeat words) - 0(Normal) 11. Extinction and Inattention (visual/tactile/auditory/spatial/personal) - 0(No abnormality) 1a. Level of Consciousness (LOC) - 0(Alert) 1b. Level of Consciousness (LOC) (Month \T\ Age) - 0(Both) 1c. LOC Commands (Open \T\ Closes Eyes/Manager Terminal) - 0(Both) 2. Best Gaze (Lateral Gaze Paresis) - 0(Normal) 3. Visual Field Loss - 0(No visual loss) 4. Facial Palsy - 0(Normal) 5a. Left Arm: Motor (10-second hold) - 0(No drift) 5b. Right Arm: Motor (10-second hold) - 0(No drift) 6a. Left Leg: Motor (5-second hold - always test supine) - 0(No drift) 6b. Right Leg: Motor (5-second hold - always test supine) - 0(No drift) 7. Limb Ataxia (finger/nose \T\ heel/[place] - test with eyes open) - 0(Absent) 8. Sensory Loss (pinprick arms/legs/face) - 0(Normal) 9. Best Language: Aphasia (description/naming/reading) - 0(No aphasia) Initials: rs5 Signatures: Dispatcher [employer] EDMS Mckinley Colunga MD MD cha Sotelo, Ricky RN RN rs5 Corrections: (The following items were deleted from the chart) 09: 09:28 BASIC METABOLIC PANEL+C.LAB.BRZ ordered. EDMS EDMS 09:29 09:28 CBC+H.LAB.BRZ ordered. EDMS EDMS 09:29 09:28 HEPATIC FUNCTION+C.LAB.BRZ ordered. EDMS EDMS 09:29 09:28 MAGNESIUM+C.LAB.BRZ ordered. EDMS EDMS 09:29 09:28 PROBNP+C.LAB.BRZ ordered. EDMS EDMS 09:29 09:28 PROTIME (+INR)+COAG.LAB.BRZ ordered. EDMS EDMS 09:29 09:28 Troponin High Sensitivity+C.LAB.BRZ ordered. EDMS EDMS 09:29 09:28 C-REACTIVE PROTEIN+C.LAB.BRZ ordered. EDMS EDMS 10:06 09:29 MR STROKE PROTOCOL+MRI.RAD.BRZ ordered. EDMS EDMS 10:45 10:23 to stroke team [facility] karina karina 10:45 10:23 [facility] karina karina 10:45 10:23 Higher level of care karina karina 10:45 10:23 Stable karina karina 10:45 10:23 new karina karina 10:45 10:23 have improved karina karina 10:45 10:23 Dizziness and giddiness karina karina 10:45 10:23 Syncope Near karina karina 10:45 10:23 Cerebral infarction, unspecified - acute karina karina 10:47 10:47 LIPID PROFILE+C.LAB.BRZ ordered. EDMS EDMS
[2024-02-21] MEDS ORDERED: FOLIC ACID 5 MG/ML VIAL ONE (10:31)
[2024-02-21] MEDS ORDERED: TENECTEPLASE 50 MG/10 ML VIAL IV ONE (10:32)
--- NOTE | 2024-02-21 10:37 | RAD REPORT ---
EXAM DESCRIPTION: CT - Ct Stroke Brain Wo Cont - 02/21/2024 10:16 am CLINICAL HISTORY: STROKE ALERT Headache, drowsiness, CVA symptomology COMPARISON: Head angio dated 02/21/2024; Head Brain Wo Cont dated 08/17/2017 TECHNIQUE: All CT scans are performed using dose optimization technique as appropriate and may inclu de automated exposure control or mA/KV adjustment according to patient size. FINDINGS: No intracranial hemorrhage, hydrocephalus or extra-axial fluid collection.Mild periventric ular chronic microvascular ischemic changes.No areas of brain edema or evidence of midline shift. The paranasal sinuses and mastoids are clear. The calvarium is intact. IMPRESSION: No acute intracranial abnormality. The findings were discussed with doctor Colunga in the emergency room on 02/21/2024 at 10:15 a.m. b y telephone.
--- NOTE | 2024-02-21 10:38 | RAD REPORT ---
EXAM DESCRIPTION: RAD - Chest Single View - 02/21/2024 9:42 am CLINICAL HISTORY: COUGH Chest pain. COMPARISON: Chest Single View dated 03/27/2023; Chest Single View dated 08/17/2017; CHEST SINGLE VIEW d ated 10/27/2010; CHEST PA AND LAT 2 VIEW dated 06/26/2007 FINDINGS: Portable technique limits examination quality. The lungs are mildly emphysematous but grossly clear. The heart is normal in size. No displaced fract ures. IMPRESSION: No acute intrathoracic process suspected.
--- NOTE | 2024-02-21 10:41 | RAD REPORT ---
EXAM DESCRIPTION: CT - Head angio - 02/21/2024 10:16 am CLINICAL HISTORY: DIZZINESS Headache, drowsiness, CVA symptomology COMPARISON: Head Brain Wo Cont dated 08/17/2017; HEAD BRAIN W O CONTRAST dated 11/01/2010 TECHNIQUE: CT angiography of the head was performed with MIPs. All CT scans are performed using dose optimization technique as appropriate and may include automated exposure control or mA/KV adjustment according to patient size. FINDINGS: No evidence of large vessel occlusion. No evidence of aneurysm is detected. No flow-limiti ng stenosis or vascular malformation identified. Antegrade flow is seen in the vertebral arteries. The vertebral arteries are codominant. The visualized dural venous sinuses are patent. IMPRESSION: No significant flow abnormality is detected.
[2024-02-21 10:42] LABS: Specific Gravity 1.013 (1.005-1.030); Sqamous Epithelial <5 /HPF (None Seen); Urine Bacteria None Seen /HPF (<20); Urine Bilirubin NEGATIVE (Negative); Urine Blood Negative (Negative); Urine Clarity Clear (Clear); Urine Color Colorless (Yellow); Urine Culture Reflex Order NOT NEEDED; Urine Glucose NEGATIVE (Negative); Urine Ketones NEGATIVE (Negative); Urine Microscopic Reflex YN ORDER UMIC; Urine Nitrite NEGATIVE (Negative); Urine Protein NEGATIVE (Negative); Urine RBC None Seen /HPF (None Seen); Urine Urobilinogen Normal (Normal); Urine WBC <5 /HPF (<5)
--- NOTE | 2024-02-21 10:42 | RAD REPORT ---
EXAM DESCRIPTION: CT - Neck Angio - 02/21/2024 10:17 am CLINICAL HISTORY: NUMBNESS COMPARISON: No comparisons TECHNIQUE: CT angiography of the neck vessels was performed with MIPs. All CT scans are performed using dose optimization technique as appropriate and may include automated exposure control or mA/KV adjustment according to patient size. FINDINGS: A left aortic arch is identified with normal three vessel configuration of the great vesse ls. No significant flow abnormality is seen of the common carotid bilaterally. Mild soft plaque is seen left carotid bulb. No significant carotid stenosis evident. Normal flow is seen within both vertebral arteries. IMPRESSION: No significant flow abnormality of the neck vessels is identified. Small focal soft plaque seen left carotid bulb. NASCET criteria used. Mild 0-49% stenosis Moderate 50-69% stenosis Severe 70-99% stenosis
[2024-02-21] MEDS ORDERED: ATORVASTATIN 20 MG TAB ONE (11:00)
[2024-02-21] MEDS ORDERED: CLOPIDOGREL 75 MG TABLET ONE (11:00)
[2024-02-21 12:41] VITALS: BP 157/86; TEMP 98; O2SAT 99
--- NOTE | 2024-02-26 12:53 | EKG ---
Test Date: 2024-02-21 Test Time: 10:16:52 Statistician Theoretical: ALP MEASUREMENT RESULTS: Intervals: Rate: 78 CO: 186 QRSD: 90 QT: 414 QTc: 471 [place]: P: 54 CO: 186 QRS: 32 T: 61 INTERPRETIVE STATEMENTS: Normal sinus rhythm Normal ECG Compared to ECG 08/17/2017 07:05:04 No significant changes Electronically Signed On 02-26-24 12:43:51 CDT by Adolfo King
== END 2024-02-21 11:50 | disposition left against medical advice (07) ==
LOC: ER 09:13 → ERHOLD 11:42
PROVIDERS: ADMIT Internal Medicine; ATTEND Internal Medicine
DX: G45.9 Transient cerebral ischemic attack, unspecified (principal); R42 Dizziness and giddiness; I10 Essential (primary) hypertension; Z88.6 Allergy status to analgesic agent; Z53.29 Procedure and treatment not carried out because of patient's decision for other reasons; R29.700 NIHSS score 0
CPT/HCPCS: 96361; 93005; 85025; 81001; 80048; 36415; 83735; 85610; 80061; 82947; 80076; 84484; 83880; 86140; 70496; 70498; 70450; 71045; 96375; 96374; 99285; Q9967; J3101; J7030

== ENCOUNTER 2024-08-06 13:42 | Emergency (ER) | payer OTHER ==
--- OUTSIDE RECORDS SUMMARY | 2024-08-06 13:46 | XMS REPORT | Continuity of Care Document ---
Author Name Unknown Address [address] [facility]. [address] thconnect Address [address] [facility] 1 [address] [place] [address] Care Team Providers Care Accounting Administrative Assistant Name Role Phone SHANIA HERMAN Primary Care Physician Unavaila ble [email or web address] Attending Clinician Unavaila Negro Esquivel Attending Clinician [phone] Anni Cabrera PA-C Attending Clinician [phone] NEGRO LOPES Attending Clinician Unavailable Doctor Unassigned, Dobbins Attending Clinician U navailable [email or web address] Admitting Clinician Viola brewer Payers Payer Name Policy Type Policy Number Effective Date Expirati on Date Source Problems Condition Name Condition Details Condition Category Status Onset Date Resolution Date Last Treatment Date Treating Clinician Comments Source Atypical squamous cell changes of undetermin ed significan ce (ASCUS) on cervical cytology with positive high risk human papilloma virus (HPV) Atypical squamous cell changes of undetermin ed significan ce (ASCUS) on cervical cytology with positive high risk human papilloma virus (HPV) Disease Active 03-11 00:00: 00 Overview: Formattin g of this note might be different from the original. referred for colposcop y [facility] Positive HPV Positive HPV Disease Active 02-21 00:00: 00 [facility] Uterovagin al prolapse Uterovagin al prolapse Disease Active 02-20 00:00: 00 [facility] Gastritis Gastritis Disease Active 02-20 00:00: 00 [facility] Obesity Obesity Disease Active 02-06 00:00: 00 Overview: Formattin g of this note might be different from the original. ICD10 Diagnosis Term International Controller Utility [facility] Allergies, Adverse Reactions, Alerts Allergy Name Allergy Type Status Severity Reaction(s) Onset Date Inactive Date Treating Clinician Comments Source ASPIRIN DRUG INGREDI Active Dizziness 02-20 00:00: 00 [facility] Aspirin Propensi ty to adverse reaction s Active Dizziness 02-20 00:00: 00 [facility] SEAFOOD/ FISH Food Active Rash 02-05 00:00: 00 [facility] Seafood/ Fish Propensi ty to adverse reaction s Active Rash 02-05 00:00: 00 [facility] Social History Social Habit Start Date Stop Date Quantity Comments Source Alcohol intake 2022-02-13 00:00:00 2022-02-13 00:00:00 Current non-drinker of alcohol (finding) [facility] Sex Ass[birth year] At 1955 00:00:00 1955 00:00:00 [facility] Smoking Status Start Date Stop Date Source Never smoker [facility] Medications Ordered Medication Name Filled Medication Name Start Date Stop Date Current Medication? Ordering Clinician Indication Dosage Frequency Signature (SIG) Comments Components Source Estradiol (VAGIFEM) 10 mcg Tab 03-24 00:00: 00 Yes 1{tbl} Insert 1 Tab into vagina daily. One tab daily for the first two weeks, then insert one tab twice weekly for 10 weeks. [facility] Vital Signs Vital Name Observation Time Observation Value Comments S bety Systolic blood pressure 2022-02-13 20:55:00 128 mm[Hg] [facility] Diastolic blood pressure 2022-02-13 20:55:00 73 mm[Hg] [facility] Heart rate 2022-02-13 20:55:00 67 /min [facility] Body temperature 2022-02-13 20:55:00 36.89 Sugey [facility] Respiratory rate 2022-02-13 20:55:00 14 /min [facility] Body height 2022-02-13 20:55:00 160 cm [facility] Body weight 2022-02-13 20:55:00 72.712 kg [facility] BMI 2022-02-13 20:55:00 28.40 kg/m2 [facility] Oxygen saturation in Arterial blood by Pulse oximetry 2022-02-13 20:55:00 97 /min [place] [facility] Procedures Procedure Date / Time Performed Performing Clinicia n Source POCT MOLECULAR STREP 2022-02-13 21:02:00 Kamilah Cabrera [facility] ASSIGNMENT OF BENEFITS 2022-02-13 20:50:01 Docto r Unassigned, Dobbins [facility] Encounters Start Date/Time End Date/Time Encounter Type Admission Type Attending [facility] Care Facility Care Department Encounter ID Source 2023-09-17 00:00:00 2023-09-17 00:00:00 Outpatient [email or web address] [facility] [id number] [facility] 2022-02-13 16:00:00 2022-02-13 16:20:00 Urgent Care Negro Lopes Nancy [facility] [id number] [facility] 2022-02-13 16:00:00 2022-02-13 16:19:46 Outpatient R NEGRO LOPES [facility] [id number] [facility] 2022-02-13 00:00:00 2022-02-13 00:00:00 Orders Only Doctor Unassigned, Dobbins [facility] [id number] [facility] Results Test Description Test Time Test Comments Results Result Co mments Source [facility]
[2024-08-06 14:40] LABS: Specific Gravity < 1.005 (1.005-1.030); Sqamous Epithelial None Seen /HPF (None Seen); Urine Bacteria <20 /HPF (<20); Urine Bilirubin NEGATIVE (Negative); Urine Blood 1+ (Negative); Urine Clarity Clear (Clear); Urine Color Colorless (Yellow); Urine Culture Reflex Order NOT NEEDED; Urine Glucose NEGATIVE (Negative); Urine Ketones NEGATIVE (Negative); Urine Microscopic Reflex YN ORDER UMIC; Urine Mucus Slight /HPF (None Seen); Urine Nitrite NEGATIVE (Negative); Urine Protein NEGATIVE (Negative); Urine RBC <5 /HPF (None Seen); Urine Urobilinogen Normal (Normal); Urine WBC <5 /HPF (<5); Urine pH 6.5 (5.0-7.0)
[2024-08-06 14:41] LABS: Absolute Lymphocytes (CBC) 0.5 K/uL (0.7-4.9); Absolute Monocytes 0.6 K/uL (0.1-1.3); Absolute Neutrophil 4.5 K/uL (1.8-8.0); Basophils % 0.5 % (0-1.3); Eosinophils % 0.1 % (0-4.4); Hematocrit 35.6 % (36.0-45.0); Hemoglobin 11.9 g/dL (12.0-15.0); MCH 31.7 pg (27.0-35.0); MCHC 33.4 g/dL (32.0-36.0); MPV 9.5 fL (7.6-11.3); Neutrophils % 79.4 % (41.7-73.7); Platelets 142 thou/uL (152-406); RBC Red Blood Cell Count 3.75 M/uL (3.86-4.86); Red Cell Distribution Width 13.6 % (12.1-15.2)
[2024-08-06 14:48] LABS: PTT, Activated Partial Thromb 29.3 SECONDS (24.3-36.9); Protime INR 1.07
[2024-08-06 14:58] LABS: Albumin 3.7 g/dL (3.4-5.0); Albumin/Globulin Ratio 0.9 (1.1-1.8); Anion Gap 8.5 mEq/L (5.0-15.0); Bilirubin Total 0.5 mg/dL (0.2-1.0); Globulin 3.9 g/dL (2.3-3.5); Potassium 3.5 mEq/L (3.5-5.1); Protein, Total 7.6 g/dL (6.4-8.2); Troponin High Sensitivity 5.5 pg/mL (<58.9)
[2024-08-06 15:07] LABS: SARS-CoV-2 Antigen CONTROL BLUE LINE VIS/BG OK
[2024-08-06 15:08] LABS: SARS-CoV-2 Antigen Rapid Res Positive (Negative)
--- NOTE | 2024-08-06 15:29 | RAD REPORT ---
EXAMINATION: ONE VIEW CHEST XR CLINICAL INDICATION: Female, 68 years old. [facility] MAIN FEVER Bed Name: 20 TECHNIQUE: Frontal chest projection is submitted. Examination is limited by patient positioning and t echnique. COMPARISON: 02/21/2024 FINDINGS: The lungs are well inflated and clear. No pneumothorax or sizable effusion. The heart is normal in s ize. IMPRESSION: No acute intrathoracic abnormalities.
--- NOTE | 2024-08-06 16:38 | RAD REPORT ---
EXAMINATION: CT ABDOMEN AND PELVIS WITH CONTRAST CLINICAL INDICATION: Female, 68 years old. [facility] MAIN ABD PAIN IV ONLY Bed Name: 20 TECHNIQUE: CT abdomen and pelvis was performed, after the administration of IV contrast, as per [facility] protocol. Axial, sagittal and coronal reconstructions were obtained. One or more of the following dose reduction techniques were used: Automated exposure control, adjustment of the mA and k V according to patient size, and iterative reconstruction. Unless otherwise specified, incidental findings do not require dedicated imaging follow-up. COMPARISON: 03/27/2023 FINDINGS: LOWER CHEST: The visualized lung bases are clear. LIVER: Normal in size and contour. No focal lesion. BILIARY SYSTEM: No suspicious abnormalities. SPLEEN: Normal size. No focal lesion. PANCREAS: No mass, ductal dilation, or mercy-pancreatic fluid. ADRENALS: Normal; no mass. KIDNEYS: Normal size and contour. No hydronephrosis. Stable right parapelvic and cortical cysts, larg est measuring 1.9 cm, benign appearance. URINARY BLADDER: Unremarkable. GASTROINTESTINAL TRACT: No evidence of free air, significant intra-abdominal free fluid, bowel obstru ction or abscess. Mild colonic diverticulosis. APPENDIX: Normal appendix. LYMPH NODES: No lymphadenopathy. MUSCULOSKELETAL: No acute or suspicious osseous abnormality. ADDITIONAL FINDINGS: None. IMPRESSION: No acute or concerning abnormalities seen in the abdomen or pelvis. Incidental findings as above.
--- NOTE | 2024-08-06 16:47 | EDPHYS ---
Physician Documentation [facility] Name: Ellen Nevarez Age: 68 yrs Sex: Female : 1955 Arrival Date: 08/06/2024 Time: 13:42 Bed 20 Private MD: ED Physician Cyrus Palomo HPI: 08/06 14:19 This 68 yrs old Female presents to ER via EMS with complaints of Near Syncope. kb 17:40 Patient is a 68-year-old female who presents for headache, abdominal pain, urinary kb frequency, lightheadedness and malaise that started yesterday. Went to urgent care today and was sent here by EMS for near syncope. Denies nausea, vomiting, diarrhea, fever.. Historical: - Allergies: 13:51 Aspirin; ph - PMHx: 13:51 Hypertension; ph - Immunization history:: Adult Immunizations unknown. - Infectious Disease History:: Denies. - Social history:: Smoking status: Patient denies any tobacco usage or history of. ROS: 14:18 Constitutional: As per HPI kb Exam: 14:12 ECG was reviewed by the Attending Physician. kb 14:13 Constitutional: This is a well developed, well nourished patient who is awake, alert, kb and in no acute distress. Head/Face: Normocephalic, atraumatic. ENT: Moist Mucous membranes Cardiovascular: Tachycardic rate, normal rhythm Respiratory: Respirations even and unlabored. No increased work of breathing. Talking in full sentences Skin: Warm, dry with normal turgor. Normal color. MS/ Extremity: Pulses equal, no cyanosis. Neurovascular intact. Full, normal range of motion. Neuro: Awake and alert, GCS 15, oriented to person, place, time, and situation. Moves all extremities. Normal gait. 14:13 Respiratory: Breath sounds: are clear throughout, 14:13 Abdomen/GI: Inspection: abdomen appears normal, Bowel sounds: normal, Palpation: soft, in all quadrants, mild abdominal tenderness, in the suprapubic area, left upper quadrant and left lower quadrant, Vital Signs: 13:48 Resp 18; Temp 99; ph 13:49 BP 155 / 89 Sitting; Pulse 99; Resp 18; Pulse Ox 99% on R/A; tm3 13:49 BP 142 / 87 Standing; Pulse 99; Resp 18; Pulse Ox 98% on R/A; tm3 13:49 BP 151 / 87 Supine; Pulse 100; Resp 18; Temp 99(O); Pulse Ox 97% on R/A; tm3 16:04 BP 141 / 88; Pulse 95; Resp 18; Pulse Ox 100% on R/A; ph 17:24 BP 141 / 82; Pulse 87; Resp 18; Temp 98; Pulse Ox 99% on R/A; ph MDM: 13:49 Patient medically screened. kb 14:23 Data reviewed: vital signs, nurses notes. Historians other than the Patient: EMS: [facility]. Care significantly affected by the following chronic conditions: Hypertension. 16:48 Differential Diagnosis: cardiac arrhythmia, idiopathic syncope, vasovagal episode, kb dehydration, viral illness, UTI. Consideration of Admission/Observation Escalation of care including admission/observation considered. admission considered for near syncope, but pt is feeling better. Educated on diagnostic results and need for follow up with PCP and return precautions. Verbal understanding received. . Counseling: I had a detailed discussion with the patient and/or guardian regarding the historical points, exam findings, and any diagnostic results supporting the discharge/admit diagnosis, lab results, radiology results, the need for outpatient follow up, a family practitioner, to return to the emergency department if symptoms worsen or persist or if there are any questions or concerns that arise at home. 08/06 13:52 Order name: CBC with Diff; Complete Time: 15: kb 08/06 13:52 Order name: Magnesium; Complete Time: 15: kb 08/06 13:52 Order name: Protime (+inr); Complete Time: 15: kb 08/06 13:52 Order name: Ptt, Activated; Complete Time: 15: kb 08/06 13:52 Order name: Troponin High Sensitivity; Complete Time: 15: kb 08/06 13:52 Order name: Urinalysis w/ reflexes; Complete Time: 15: kb 08/06 13:52 Order name: CMP; Complete Time: 15: kb 08/06 13:54 Order name: SARS-COV-2 Antigen Rapid; Complete Time: 15: kb 08/06 13:54 Order name: Flu; Complete Time: 15: kb 08/06 13:52 Order name: Chest Single View XRAY; Complete Time: 15: kb 08/06 13:52 Order name: CT Abd/Pelvis - IV Contrast Only; Complete Time: 16:39 kb 08/06 13:52 Order name: Cardiac monitoring; Complete Time: 14:13 kb 08/06 13:52 Order name: EKG - Nurse/Tech; Complete Time: 14:13 kb 08/06 13:52 Order name: IV Saline Lock; Complete Time: 14:13 kb 08/06 13:52 Order name: Labs collected and sent; Complete Time: 14:13 kb 08/06 13:52 Order name: NPO; Complete Time: 13:54 kb 08/06 13:52 Order name: O2 Per Protocol; Complete Time: 13:54 kb 08/06 13:52 Order name: O2 Sat Monitoring; Complete Time: 13:54 kb 08/06 13:52 Order name: Orthostatics; Complete Time: 13:54 kb EC:13 Rate is 97 beats/min. Rhythm is regular. QRS [place] is Normal. HI interval is normal at kb 182 msec. QRS interval is normal at 84 msec. QT interval is normal at 480 msec. Administered Medications: 14:13 Drug: NS 0.9% IV 1000 ml IV at 1000 ml once Route: IV; Rate: 1000 ml; Site: left ph antecubital; 17:26 Follow up: Response: No adverse reaction; IV Status: Completed infusion; IV Intake: ph 1000ml Disposition: 18:33 Co-signature as Attending Physician, Cyrus Palomo MD I reviewed the patient's care rt provided by the Advanced Practice Provider and agree with the diagnosis and treatment plan. Disposition Summary: 08/06/24 16:47 Discharge Ordered Notes: Location: Home kb Condition: Stable kb Diagnosis - SARS-associated coronavirus as the cause of diseases classified elsewhere kb Followup: kb - With: Emergency Department - When: As needed - Reason: Worsening of condition Followup: kb - With: Private Physician - When: 2 - 3 days - Reason: Recheck today's complaints, Continuance of care, Re-evaluation by your physician Discharge Instructions: - Discharge Summary Sheet kb - COVID-19 kb - Viral Illness, Adult kb Forms: - Medication Reconciliation Form kb - Antibiotic Education kb - Prescription Opioid Use kb - Patient Portal Instructions kb - Leadership Thank You Letter kb - Work release form ph Signatures: Dispatcher [employer] Katerina Gill FNP-C FNP-Roselyn Rodarte, RN RN ph Cyrus Palomo MD MD rt Corrections: (The following items were deleted from the chart) 13:53 13:53 Abdomen Pelvis W Con+CT.RAD.BRZ ordered. EDMS EDMS 14:18 14:12 ECG was reviewed by the Attending Physician. kb kb
--- NOTE | 2024-08-06 16:47 | ER ---
Nurse's Notes [facility] Name: Ellen Nevarez Age: 68 yrs Sex: Female : 1955 Arrival Date: 08/06/2024 Time: 13:42 Bed 20 Private MD: Diagnosis: SARS-associated coronavirus as the cause of diseases classified elsewhere Presentation: 08/06 13:48 Chief complaint: EMS states: Near syncopal episode at doctor's office, has had flank ph pain, fever and frequent urination but urine was negative for UTI. Coronavirus screen: Vaccine status: Patient reports receiving the 2nd dose of the covid vaccine. Ebola Screen: No symptoms or risks identified at this time. Initial Sepsis Screen: Does the patient meet any 2 criteria? No. Patient's initial sepsis screen is negative. Does the patient have a suspected source of infection? No. Patient's initial sepsis screen is negative. Risk Assessment: Do you want to hurt yourself or someone else? Patient reports no desire to harm self or others. Onset of symptoms was August 06, 2024. 13:48 Method Of Arrival: EMS: [facility] 13:48 Acuity: RAOUL 3 ph Historical: - Allergies: 13:51 Aspirin; ph - PMHx: 13:51 Hypertension; ph - Immunization history:: Adult Immunizations unknown. - Infectious Disease History:: Denies. - Social history:: Smoking status: Patient denies any tobacco usage or history of. Screenin:52 [facility] ED Fall Risk Assessment (Adult) History of falling in the last 3 months, ph including since admission No falls in past 3 months (0 pts) Confusion or Disorientation No (0 pts) Intoxicated or Sedated No (0 pts) Impaired Gait No (0 pts) Mobility Assist Device Used No (0 pt) Altered Elimination No (0 pt) Score/Fall Risk Level 0 - 2 = Low Risk Oriented to surroundings, Maintained a safe environment, Hourly rounding (assess needs \T\ fall precautionary measures) done. Abuse screen: Denies threats or abuse. Denies injuries from another. Nutritional screening: No deficits noted. Tuberculosis screening: No symptoms or risk factors identified. Assessment: 14:47 General: Appears in no apparent distress. Behavior is calm, cooperative, Reports chills ph for fever for 12-24 hours. Pain: Denies pain. Neuro: Level of Consciousness is awake, alert, obeys commands, Oriented to person, place, time, situation. Cardiovascular: Reports near syncope Capillary refill < 3 seconds in bilateral fingers Patient's skin is warm and dry. Respiratory: Airway Respiratory effort is even, unlabored. Derm: Skin is pink, warm \T\ dry. 16:00 Reassessment: Patient appears in no apparent distress at this time. Patient and/or ph family updated on plan of care and expected duration. Pain level reassessed. Patient is alert, oriented x 3, equal unlabored respirations, skin warm/dry/pink. 17:24 Reassessment: Patient appears in no apparent distress at this time. Patient and/or ph family updated on plan of care and expected duration. Pain level reassessed. Patient is alert, oriented x 3, equal unlabored respirations, skin warm/dry/pink. Vital Signs: 13:48 Resp 18; Temp 99; ph 13:49 BP 155 / 89 Sitting; Pulse 99; Resp 18; Pulse Ox 99% on R/A; tm3 13:49 BP 142 / 87 Standing; Pulse 99; Resp 18; Pulse Ox 98% on R/A; tm3 13:49 BP 151 / 87 Supine; Pulse 100; Resp 18; Temp 99(O); Pulse Ox 97% on R/A; tm3 16:04 BP 141 / 88; Pulse 95; Resp 18; Pulse Ox 100% on R/A; ph 17:24 BP 141 / 82; Pulse 87; Resp 18; Temp 98; Pulse Ox 99% on R/A; ph ED Course: 13:47 Patient arrived in ED. ph 13:48 Katerina Jiang FNP-C is PHCP. kb 13:48 Cyrus Palomo MD is Attending Physician. kb 13:51 Triage completed. ph 13:52 Arm band placed on Patient placed in an exam room, on a stretcher. ph 13:52 Patient has correct armband on for positive identification. Bed in low position. Call ph light in reach. Side rails up X 1. case monitor on. Pulse ox on. NIBP on. Door closed. Noise minimized. Warm blanket given. 13:54 Roselyn Muro RN is Primary Nurse. ph 14:10 Maintain EMS IV. Dressing intact. Good blood return noted. Site clean \T\ dry. Gauge \T\ ph site: 20 LAC. Flushed with 10 mL NS. 14:13 EKG done, by ED staff. tm3 14:13 Chest Single View XRAY Sent. ph 14:50 Chest Single View XRAY In Process Unspecified. EDMS 15:44 CT Abd/Pelvis - IV Contrast Only In Process Unspecified. EDMS 17:25 No provider procedures requiring assistance completed. IV discontinued, intact, ph bleeding controlled, No redness/swelling at site. Pressure dressing applied. Administered Medications: 14:13 Drug: NS 0.9% IV 1000 ml IV at 1000 ml once Route: IV; Rate: 1000 ml; Site: left ph antecubital; 17:26 Follow up: Response: No adverse reaction; IV Status: Completed infusion; IV Intake: ph 1000ml Medication: 13:52 VIS not applicable for this client. ph Intake: 17:26 IV: 1000ml; Total: 1000ml. ph Outcome: 16:47 Discharge ordered by MD. hurd 17:25 Discharged to home ambulatory, with family, ph 17:25 Condition: good 17:25 Discharge instructions given to patient, Instructed on discharge instructions, follow up and referral plans. Demonstrated understanding of instructions, follow-up care, 17:26 Patient left the ED. ph Signatures: Dispatcher [employer] EDMS Katerina Jiang, STATISTICAL TECHNICIANLaurenC STATISTICAL TECHNICIAN-Vladimir Nava tm3 Roselyn Muro, RN RN ph
[2024-08-06 17:36] VITALS: BP 141/82; TEMP 98; O2SAT 99
--- NOTE | 2024-08-08 12:26 | EKG ---
Test Date: 2024-08-06 Test Time: 14:11:06 Car Tester: TM MEASUREMENT RESULTS: Intervals: Rate: 97 WY: 182 QRSD: 84 QT: 378 QTc: 480 [place]: P: 58 WY: 182 QRS: 31 T: 62 INTERPRETIVE STATEMENTS: Normal sinus rhythm Normal ECG Compared to ECG 02/21/2024 10:16:52 No significant changes Electronically Signed On 08-08-24 12:19:12 CDT by Juliocesar Marie
== END 2024-08-06 17:26 | disposition home or self-care (01) ==
LOC: ER 13:42
DX: U07.1 COVID-19 (principal); I10 Essential (primary) hypertension
CPT/HCPCS: 85025; 81001; 36415; 83735; 85610; 85730; 84484; 80053; 87804 ×2; 74177; 71045; 87811; Q9967; 93005; 96360; 96361; 99285